=== PATIENT | female | born 1980 | race Caucasian/White ===

== ENCOUNTER 2022-07-16 04:12 | Emergency (ER) | payer OTHER, SELFPAY ==
[2022-07-16 04:13] VITALS: BP 129/60; PULSE 78; RESP 15; TEMP 36.3; O2SAT 100; BMI 25.2
--- NOTE | 2022-07-16 04:37 | EDS_ITS ---
HPI History of Present Illness Chief Complaint: Other, Pain/Inj Informant: patient and spouse/S.O. Narrative Narrative: Patient is a 42-year-old female who is right-hand dominant and reports no significant past medical history. She states that starting 2 to 3 days ago she noticed some pain beginning in the left upper arm near the shoulder which is constant and radiates to below the elbow and sometimes into the wrist/hand. She states that there has been no previous injury to the left shoulder she denies any excessive activity and she also denies any history of cervical spine injury. She states she is been trying [id number] medications without any symptom improvement and secondary to this comes in for evaluation [facility] Medical History no medical history no medical history Home Medications gabapentin 100 mg capsule 100 mg PO BID PRN pain 10 days #20 caps 07/16/22 [Rx Last Taken Unknown] methocarbamol 500 mg tablet 1,000 mg PO 4X/DAY PRN PRN Muscle pain/spasm #56 tabs 07/16/22 [Rx Last Taken Unknown] ondansetron 4 mg disintegrating tablet 4 mg PO TID PRN nausea and vomiting #21 tabs 07/16/22 [Rx Last Taken Unknown] oxycodone-acetaminophen 5 mg-325 mg tablet (Percocet) 1 tab PO Q6H PRN pain 3 days #12 tabs 07/16/22 [Rx Last Taken Unknown] prednisone 20 mg tablet 40 mg PO DAILY 5 days #10 tabs 07/16/22 [Rx Last Taken Unknown] Allergy/AdvReac Type Severity Reaction Status Date / Time No Known Allergies Allergy Verified 07/16/22 04:16 Surgical History no surgical history Social History Smoking Status: Never smoker [facility] ED Constitutional Constitutional ED: Denies chills or fever(s) ENT ENT ED: Denies sore throat Cardiovascular Cardiovascular: Denies chest pain Respiratory/Chest Respiratory/Chest: Denies cough or dyspnea Gastrointestinal Gastrointestinal: Denies abdominal pain, diarrhea, nausea or vomiting Genitourinary Genitourinary ED: Denies dysuria Musculoskeletal Musculoskeletal: Reports other Details: Positive left arm pain ; Denies back pain or neck pain Integumentary Denies rash Neurologic Neurologic: Denies headache(s), paresthesias or weakness Hematologic/Lymphatic Hematologic/Lymphatic: Denies easy bleeding or easy bruising EXAM Physical Exam Const Vital Signs: 07/16/22 04:13 07/16/22 04:17 Temperature 97.3 F L Temperature Source Temporal Pulse Rate 78 Respiratory Rate 15 Respiratory Effort Normal Blood Pressure 129/60 H Blood Pressure Mean 83 Pulse Ox 100 Oxygen Delivery Method Room Air Positive well nourished and well developed General Appearance ED: well developed Eyes PERRL and EOMs intact bilaterally Neck Neck Narrative: No bony deformity or step-off of the cervical spine no midline pain with palpation. There is left paracervical tension and spasm noted that worsens with side bending and rotation. Patient does report increased pain into the left arm with both side bending to the right and left. Patient does have a positive Spurling's on the left as well. Resp normal respiratory effort and clear to auscultation bilaterally Cardio regular rate and regular rhythm Rate: other Other Details: Radial pulses are plus 2 out of 4 bilaterally are equal and symmetric Extremity normal to inspection Extremity Narrative: Left upper extremity is neurovascularly intact; AIN/PIN are intact and normal. Patient has full active and passive range of motion. No obvious bony deformity or joint effusion. Negative sulcus sign Neuro oriented x3, CN's II-XII intact bilaterally and no sensory deficits noted Sensorium / Orientation: alert Motor Exam: strength 5/5 throughout Psych mental status grossly normal Skin no rashes or lesions noted Skin Narrative: Capillary refills less than 2 seconds MDM MDM MDM Narrative Medical decision making narrative: Patient presented to the ER with stable vitals. She reported pain that was more burning and throbbing in nature most consistent with nerve pain beginning in the left shoulder and tracking down to the left forearm/hand. There is no report or signs of trauma by physical exam there is no overlying soft tissue changes to suggest infection. Patient also denied any previous injury to suggest scar tissue formation/impingement syndrome or previous cervical spine injury to suggest degeneration or ruptured disc. Based on the fact she has increased pain with side bending the neck to the right and left this would indicate that this is most likely superficial nerve compression. At this time as she has no signs of neurovascular compromise/neuro claudication I do not feel that imaging studies would be appropriate as she will need an MRI as a diagnostic study of choice to check for compression of the brachial plexus. Therefore at this time we will simply medicate the patient and placed her on multiple days of treatment at home. If her symptoms resolve then she most likely has superficial nerve compression from the muscle but if they persist she can talk to her family doctor about outpatient MRI or orthopedics/neurosurgery referral. Plan of care discussed with both patient and and both are agreeable to it. History & Record Review Discussion w/independent historian: Patient and Significant other Discharge Plan Triage Chief Complaint: Other, Pain/Inj ED Provider: Jude Woodward Dx/Rx/DC Orders Clinical Impression: Cervical radiculopathy Instructions: ED Radiculopathy, Cervical Prescriptions: New prednisone 20 mg tablet 40 mg PO DAILY 5 Days Qty: 10 0RF gabapentin 100 mg capsule 100 mg PO BID PRN (Reason: pain) 10 Days Qty: 20 0RF methocarbamol 500 mg tablet 1,000 mg PO 4X/DAY PRN PRN (Reason: Muscle pain/spasm) Qty: 56 0RF oxycodone-acetaminophen [Percocet] 5-325 mg tablet 1 tab PO Q6H PRN (Reason: pain) 3 Days Qty: 12 0RF ondansetron 4 mg tablet,disintegrating 4 mg PO TID PRN (Reason: nausea and vomiting) Qty: 21 0RF Primary Care Provider: Joey Lugo Activity Restrictions/Additional Instructions: Please take the medication provided as directed to help with your symptoms. I believe your recurrent left arm pain is due to superficial nerve compression from tight muscles in the shoulder/neck. If symptoms resolve with treatment there is no need for follow-up but if they persist talk to your family doctor about a MRI and/or referral to a orthopedic or spine surgeon for further evaluation Disposition Disposition: Home, Self Care
[2022-07-16] MEDS: Ondansetron ODT 4 MG Tablet PO (04:44)
[2022-07-16] MEDS: Gabapentin 100 MG Capsule PO (04:45)
[2022-07-16] MEDS: Orphenadrine 100 MG Tablet PO (04:45)
[2022-07-16] MEDS: predniSONE 20 MG Tablet 60 MG PO (04:45)
== END 2022-07-16 04:59 | disposition home or self-care (01) ==
PROVIDERS: Emergency Provider Emergency Medicine; PCP Family Medicine; Visit Provider Emergency Medicine
DX: M54.12 Radiculopathy, cervical region (principal)
CPT/HCPCS: 99283